=== PATIENT | male | born 1995 | race Caucasian/White ===

== ENCOUNTER 2018-08-23 15:30 | Emergency (ER) | payer BC ==
[2018-08-23 15:39] VITALS: BP 129/75
--- NOTE | 2018-08-23 15:41 | EDPHY ---
H & P Stated Complaint: pt says he fell off a wall hitting head while drunk early am, [place] - Medical/Surgical History Hx Asthma: No Hx Chronic Respiratory Disease: No Hx Diabetes: No Hx Cardiac Disease: No Hx Renal Disease: No Hx Cirrhosis: No Hx Alcoholism: No Hx HIV/AIDS: No Hx Splenectomy or Spleen Trauma: No Other PMH: none - Social History Smoking Status: Never smoked Time Seen by Provider: 08/23/18 15:40 HPI/ROS: CHIEF COMPLAINT: Head injury yesterday HISTORY OF PRESENT ILLNESS: 22-year-old male via private vehicle states that approximately 1:00 a.m. today he was sitting on a fence after having drank some alcohol, fell backward impacted his head. This was witnessed by his friends. No loss of consciousness. No seizure activity. At this time he is complaining of nonprogressive headache, emotional lability, photophobia. He denies: Nausea, vomiting, midline C-spine pain, peripheral paresthesia, weakness, numbness, chest pain, dyspnea, back pain, neurologic deficits, gait instability, slurred speech. REVIEW OF SYSTEMS: 10 systems reviewed and negative with the exception of the elements mentioned in the history of present illness PAST MEDICAL/SURGICAL HISTORY: no anticoagulant use, no relevant medical/ surgical history. Up-to-date tetanus SOCIAL HISTORY: Positive alcohol use at time of incident PHYSICAL EXAM 1) GENERAL: Well-developed, well-nourished, alert and oriented. Appears to be in no acute distress. Answering questions appropriately. Observed ambulating to his exam room, smiling, stable steady 2) HEAD: Normocephalic, abrasion left occipital region. No hematoma. No depression. No crepitus 3) HEENT: Pupils equal, round, reactive to light bilaterally. Negative Horners. Nasopharynx, oropharynx, clear. No deformity or angulation of nose. No septal hematoma. No rhinorrhea. No oral trauma. Ears bilaterally with normal tympanic membranes. No hemotympanum. No fluid or blood in the external auditory canal. No raccoon eyes. No Motley sign. Teeth are normally aligned with no gross malocclusion, TMJ bilaterally nontender, facial bones nontender including the zygomatic arch, maxilla mandible. 4) NECK: No cervical collar is on. Posterior cervical spine is nontender, no stepoff, no effusion. Full range of motion which does not elicit any midline cervical spine pain, no posterior midline tenderness, no step-off. 5) LUNGS: Clear to auscultation bilaterally, no wheezes, no rhonchi, no retractions. No obvious signs of trauma. No chest wall pain. No flaring, no grunting. Moving symmetrically. No crepitus. 6) HEART: [Regular rate and rhythm, 7) ABDOMEN: No guarding, no rebound, no focal tenderness, no peritoneal signs, no signs of trauma, no ecchymosis 8) MUSCULOSKELETAL: Moving all extremities, no focal areas of tenderness, no obvious trauma. 9) BACK: No midline vertebral tenderness, no fluctuance, no step-off, no obvious trauma, no visual or palpable abnormality. 10) SKIN: No laceration. No abrasion 11) NEURO: Awake, alert, and oriented to person, place and time. Answers questions appropriately. There were no obvious focal neurologic abnormalities. No cerebellar dysfunction. Cranial nerves 2 through to 12 intact. Normal steady gait. Upper and lower extremities bilaterally with strength 5 / 5, reflexes 2+. DIFFERENTIAL DIAGNOSIS: Not necessarily in any particular order, my differential diagnosis includes, but is not limited to, concussion, skull fracture, intraparenchymal contusion, subarachnoid, subdural and epidural hematoma. The patient understands that this diagnosis is provisional and can never be 100% accurate. (Anitha Harrison) Constitutional: Initial Vital Signs Temperature (C) 36.7 C 08/23/18 15:33 Heart Rate 66 08/23/18 15:33 Respiratory Rate 16 08/23/18 15:33 Blood Pressure 129/75 H 08/23/18 15:33 O2 Sat (%) 97 08/23/18 15:33 O2 Delivery Mode Room Air Allergies/Adverse Reactions: No Known Allergies Allergy (Unverified 08/23/18 15:38) Home Medications: Medication Instructions Recorded NK [No Known Home Meds] 08/23/18 Medical Decision Making ED Course/Re-evaluation: 3:54 p.m.: This incident occurred approximately 15 hr ago and he was able to walk into the ER on his own accord and has a nonfocal exam. I think the patient 's symptoms are more than likely secondary to postconcussive syndrome. We discussed the indications risks benefits of CT imaging. Informed the patient that I think that intracranial hemorrhage and/or skull fracture are less than likely in this patient at this time and as such I do not think that the benefits of CT imaging outweigh the risks. Nonetheless this has been offered to the patient and he and his friends agree that they do not feel this is indicated. Patient feels comfortable being discharged. All questions and concerns addressed by myself. Patient given my usual and customary discharge precautions and instructions regarding their clinical impression. Care of patient under supervision of secondary supervising physician Dr Kingsley Martins. ( [facility]) I did not see this patient while he was in the emergency department. However his care was discussed with PA while the patient was in the department. I agree with treatment plan and management (Kingsley Martins) Departure - Departure Disposition: Home, Routine, Self-Care Clinical Impression: Post concussive syndrome Condition: Good Instructions: Post Concussion Syndrome (ED) Additional Instructions: ALTHOUGH THERE IS NO EVIDENCE OF SERIOUS HEAD INJURY AT THIS TIME, DELAYED SIGNS CAN APPEAR 24 TO 48 HOURS AFTER INJURY. PLEASE RETURN TO THE EMERGENCY DEPARTMENT (ED) IMMEDIATELY IF YOU HAVE INCREASED HEADACHE, PERSISTENT HEADACHE , VOMITING, WEAKNESS, CONFUSION OR VISUAL PROBLEMS. WE RECOMMEND THAT YOU DO NOT RESUME CONTACT SPORTS OR ACTIVITIES THAT TAKE COORDINATION OR BALANCE SUCH SKIING OR RIDING A BICYCLE UNTIL CLEARED TO DO SO BY YOUR DOCTOR OR BY A NEUROLOGIST. Referrals: Hillary Medina MD [Medical Doctor] - 2-3 days, call for appt.
--- NOTE | 2018-08-23 16:51 | ASMTCAGE ---
CAGE Additional Comments Attempted to see pt for CAGE screening secondary to positive SBIRT. Pt discharged prior to speaking with CM. RN reports pt was intoxicated at time of injury. Pt encouraged to limit ETOH use going forward by staff. CM available should pt return to ED. Date Signed: 08/23/2018 04:50 PM Electronically Signed By:Loida Alexander RN
== END 2018-08-23 16:03 | disposition home or self-care (01) ==
DX: F07.81 Postconcussional syndrome (principal); W19.XXXA Unspecified fall, initial encounter